=== PATIENT | female | born 1935 | race Caucasian/White ===

== ENCOUNTER 2019-01-19 15:50 | Inpatient (IN) | payer BC, MEDICAID ==
[~2019-01-19] VITALS: Ht 157.5 cm; Wt 54.4 kg
[2019-01-19] MEDS ORDERED: ACETAMINOPHEN ES 500 MG TABLET PO ONE (16:30)
[2019-01-19] MEDS ORDERED: ACETAMINOPHEN ES 500 MG TABLET ONE (16:36)
[2019-01-19 16:47] LABS: BASOPHILS % (AUTO) 0.6 % (0.0-2.0); EOSINOPHILS # (AUTO) 0.1 K/uL (0.0-0.7); EOSINOPHILS % (AUTO) 0.8 % (0.0-7.0); HEMATOCRIT 30.9 % (31.2-41.9); HEMOGLOBIN 10.4 g/dL (10.9-14.3); LYMPHOCYTES # (AUTO) 1.3 K/uL (20.0-40.0); LYMPHOCYTES % (AUTO) 21.6 % (20.5-51.5); MEAN CORPUSCULAR HEMOGLOBIN 30.3 uug (24.7-32.8); MEAN CORPUSCULAR HGB CONC 34 g/dL (32.3-35.6); MEAN CORPUSCULAR VOLUME 90.2 fL (75.5-95.3); MONOCYTES # (AUTO) 0.6 K/uL (2.0-10.0); MONOCYTES % (AUTO) 9.8 % (0.0-11.0); NEUTROPHILS # (AUTO) 4.2 K/uL (1.8-8.9); NEUTROPHILS % (AUTO) 67.2 % (38.5-71.5); PLATELET COUNT (AUTO) 141 K/uL (179-408); RED BLOOD CELL COUNT(AUTO) 3.43 MIL/uL (3.63-4.92); WHITE BLOOD COUNT (AUTO) 6.2 K/uL (3.8-11.8)
[2019-01-19 16:53] LABS: CREATININE 0.9 mg/dL (0.6-1.3); POTASSIUM 3.8 mmol/L (3.5-5.1)
[2019-01-19 16:59] LABS: BILIRUBIN,DIRECT 0.1 mg/dL (0.0-0.2); BILIRUBIN,TOTAL 0.6 mg/dL (0.2-1.0); TOTAL PROTEIN, SERUM 6.2 g/dL (6.4-8.2)
[2019-01-19 17:41] LABS: THYROID STIMULATING HORMONE 0.813 mIU/mL (0.358-3.740)
--- NOTE | 2019-01-19 17:45 | NUR ---
Dr. Altamirano paged, awaiting call back
[2019-01-19] MEDS ORDERED: LORATADINE (17:55)
[2019-01-19] MEDS ORDERED: VITAMIN D (17:55)
[2019-01-19] MEDS ORDERED: LORAZEPAM (17:55)
[2019-01-19] MEDS ORDERED: LYRICA (17:55)
--- NOTE | 2019-01-19 18:45 | NUR ---
Spoke to Mel[place] from [place] [facility] Altamirano did not answer the phone and she stated that she will try to get a hold of him and call us back.
--- NOTE | 2019-01-19 18:51 | NUR ---
ER PHYSICIAN SPEAKING W/ DR. GARZON.
--- NOTE | 2019-01-19 18:58 | NUR ---
Dr. Altamirano called back, patient does need to be transferred and can be admitted.
--- NOTE | 2019-01-19 19:09 | NUR ---
HAND OFF AND SBAR RECEIVED FROM PHOEBE RN (OUTGOING DAY SHIFT RN) PT WILL BE ADMITTED FOR TELE SHYLA GARZON MD DX : SUBDURAL HEAD INJURY L RADIUS AND ULNAR FX S/P FALL TODAY PT IS [id number]
--- NOTE | 2019-01-19 19:09 | NUR ---
Report given to JOHN Cote
--- NOTE | 2019-01-19 19:30 | NUR ---
DR SHELBY (FACE) ON THE PHONE W/ DR MATA
--- NOTE | 2019-01-19 19:33 | NUR ---
OKAY TO ADMIT PER DR SHELBY. DR MATA SPOKE WITH HIM OVER THE PHONE IN ORDER TO OBTAIN APPROVAL.
--- NOTE | 2019-01-19 19:37 | NUR ---
MICHELLE CALLED PENDING CALL BACK FROM DR SORIANO
--- NOTE | 2019-01-19 20:19 | NUR ---
Report to Saeid LOPEZ
--- NOTE | 2019-01-19 20:34 | NUR ---
Pt. admitted to [facility] , under care of Dr. Del Real Belongs List completed
[2019-01-19 20:57] VITALS: BP 132/86
[2019-01-19] MEDS ORDERED: Z GUARD REMEDY PASTE 57 GM TUBE TOP PRN (22:00)
[2019-01-19] MEDS ORDERED: ONDANSETRON 4 MG/2 ML VIAL IV PRN (22:00)
[2019-01-19] MEDS ORDERED: ACETAMINOPHEN 325 MG TABLET PO PRN (22:00)
[2019-01-19] MEDS ORDERED: MAGNESIUM HYDROXIDE 30 ML LIQUID UDC PO PRN (22:00)
[2019-01-20] VITALS: BP 130/72
[2019-01-20 04:00] VITALS: BP 140/80
--- NOTE | 2019-01-20 05:37 | NUR ---
Admitted to room 302 via wheelchair accompanied by family; neurologically stable; assisted with needs, good appetite; seen by Dr Del Real with new orders; refused last night's trop lab draw; went for repeat CT of head; safety maintained; continue to monitor; continue plan of care.
[2019-01-20 06:34] LABS: BASOPHILS % (AUTO) 0.7 % (0.0-2.0); EOSINOPHILS # (AUTO) 0.1 K/uL (0.0-0.7); EOSINOPHILS % (AUTO) 2.1 % (0.0-7.0); HEMATOCRIT 30.7 % (31.2-41.9); HEMOGLOBIN 10.4 g/dL (10.9-14.3); LYMPHOCYTES # (AUTO) 1.7 K/uL (20.0-40.0); LYMPHOCYTES % (AUTO) 30.6 % (20.5-51.5); MEAN CORPUSCULAR HEMOGLOBIN 30.1 uug (24.7-32.8); MEAN CORPUSCULAR HGB CONC 34 g/dL (32.3-35.6); MEAN CORPUSCULAR VOLUME 89.1 fL (75.5-95.3); MONOCYTES # (AUTO) 0.5 K/uL (2.0-10.0); MONOCYTES % (AUTO) 8.4 % (0.0-11.0); NEUTROPHILS # (AUTO) 3.2 K/uL (1.8-8.9); NEUTROPHILS % (AUTO) 58.2 % (38.5-71.5); PLATELET COUNT (AUTO) 146 K/uL (179-408); RED BLOOD CELL COUNT(AUTO) 3.44 MIL/uL (3.63-4.92); WHITE BLOOD COUNT (AUTO) 5.4 K/uL (3.8-11.8)
[2019-01-20 06:49] LABS: BILIRUBIN,TOTAL 0.7 mg/dL (0.2-1.0); CREATININE 0.8 mg/dL (0.6-1.3); MAGNESIUM 1.7 mg/dL (1.8-2.4); PHOSPHOROUS 3.5 mg/dL (2.5-4.9); POTASSIUM 3.4 mmol/L (3.5-5.1); TOTAL PROTEIN, SERUM 6.3 g/dL (6.4-8.2)
--- NOTE | 2019-01-20 08:00 | NUR ---
AWAKE ALERT AND TALKING APPROPRIATELY, FARSI SPEAKING WITH CAREGIVER AT BEDSIDE, SR ON MONITOR. NO SS OF PAIN, N/V, DIZZINESS. CONTINUE WITH DERREK MONITORING
[2019-01-20 08:22] VITALS: BP 145/75
[2019-01-20] MEDS ORDERED: POLYVINYL ALCOHOL OPHT DROPS 15 ML BOTTLE EACHEYE PRN (10:30)
[2019-01-20 11:53] VITALS: BP 152/74
--- NOTE | 2019-01-20 12:00 | NUR ---
SEEN BY DR FIGUEROA FOR CARDIAC FOLLOW-UP SEE NOTES
[2019-01-20] MEDS: MAGNESIUM SULFATE/D5W 100 ML IV SCH ×2 (12:58→14:14)
[2019-01-20] MEDS ORDERED: POTASSIUM CHLORIDE 20 MEQ TAB.PRT.SR PO ONE (13:00)
[2019-01-20] MEDS ORDERED: LORA10TA7 PO (13:22)
[2019-01-20] MEDS ORDERED: LORA-259 PO (13:23)
[2019-01-20] MEDS ORDERED: PREG75CA PO (13:24)
[2019-01-20] MEDS ORDERED: CHOL200026 PO (13:25)
[2019-01-20] MEDS ORDERED: TRAM50TA2 PO (13:25)
[2019-01-20 16:00] VITALS: BP 144/85
--- NOTE | 2019-01-20 16:17 | NUR ---
CONTINUE WITH CURRENT TX PLAN, FALL PRECAUTION OBSERVED, METER TESTER IN ROOM. SR ON MONITOR
--- NOTE | 2019-01-20 19:30 | NUR ---
Received patient awake and alert in bed with daughter at bedside, patient is Farsi speaking. No complaints of pain to left wrist, no complaints of SOB. Heplock on the right forearm is intact and patent. Vitals WNL. Safety measures initiated. Bed is low and locked, call light within reach. Will continue to monitor.
[2019-01-20 20:00] VITALS: BP 156/86
[2019-01-20] MEDS: HYDROCODONE/APAP 5-325MG TABLET PO PRN (20:06)
[2019-01-20] MEDS: DOCUSATE SODIUM 100 MG CAPSULE PO SCH (20:06)
[2019-01-21] VITALS: BP 140/68
[2019-01-21 04:00] VITALS: BP 140/72
--- NOTE | 2019-01-21 06:00 | NUR ---
Patient slept intermittently, daughter at bedside. No distress noted. No complaints of SOB. Splint to the left forearm is intact. Safety measures given. Will endorse to next shift.
[2019-01-21 06:48] LABS: CREATININE 0.8 mg/dL (0.6-1.3); POTASSIUM 3.7 mmol/L (3.5-5.1)
--- NOTE | 2019-01-21 08:00 | NUR ---
AWAKE ALERT AND FORGETFUL FARSI SPEAKING. AWAITING ORTHO CONSULT
[2019-01-21 10:00] VITALS: BP 137/76
--- NOTE | 2019-01-21 10:01 | NUR ---
NO ACUTE CHANGE SR ON MONITOR. FALL PRECAUTION OBSERVED
[2019-01-21 16:31] VITALS: BP 108/69
--- NOTE | 2019-01-21 16:37 | NUR ---
FOLLOW-UP CALL FOR DR QUINTANILLA REGARDING WOUND CONSULT DONE, MESSAGE LEFT WITH CAFETERIA AIDE. SPLINT LEFT FOREARM MAINTAINED
--- NOTE | 2019-01-21 19:30 | NUR ---
PATIENT INTERMITTENTLY SLEEPING, AROUSABLE TO VERBAL COMMANDS. PATIENT ALERT AND ORIENTED X 3 DAUGHTER AT THE BED SIDE. SPLINT ON LEFT FA INTACT . WILL CONTINUE TO MONITOR . WAITING FOR THE DOCTOR FOR DISCHARGE ORDER TO GO HOME
[2019-01-21] MEDS: DOCUSATE SODIUM 100 MG CAPSULE PO SCH (19:53)
[2019-01-21] MEDS: HYDROCODONE/APAP 5-325MG TABLET PO PRN (19:54)
--- NOTE | 2019-01-21 20:00 | NUR ---
PAIN MEDICATION ADMINISTERED ON C/O L FA PAIN
--- NOTE | 2019-01-21 20:55 | NUR ---
TELE MONITOR DISCONTINUED. RADIOLOGY REPORT IN THE DISC WAS GIVEN TO THE SON PER REQUEST
--- NOTE | 2019-01-21 20:57 | NUR ---
PATIENT DISCHARGED HOME. IV DISCONTINUED . ARM BAND REMOVED. DISCHARGE INSTRUCTIONS EXPLAINED TO THE SON AND AND THE DAUGHTER PRESENT WITH THE PATIENT. BELONGINGS LIST CHECKED AND SIGNED BY THE DAUGHTER. WOOD HEEL FITTER MACHINE BROUGHT THE PATIENT TO THE CAR
== END 2019-01-21 21:06 | disposition home or self-care (01) | DRG 86 ==
LOC: ER 15:53 → TELE-TD3 20:24 → TELE3 01-20 18:37
PROVIDERS: ADMIT Hospitalist; ATTEND Hospitalist
PROC: 2W3DX1Z Immobilization of Left Lower Arm using Splint (ICD-10-PCS; principal; 2019-01-19)
DX: S06.5X0A Traumatic subdural hemorrhage without loss of consciousness, initial encounter (principal); S52.502A Unspecified fracture of the lower end of left radius, initial encounter for closed fracture; S52.612A Displaced fracture of left ulna styloid process, initial encounter for closed fracture; E44.1 Mild protein-calorie malnutrition; I24.8 Other forms of acute ischemic heart disease; W18.30XA Fall on same level, unspecified, initial encounter; Y92.019 Unspecified place in single-family (private) house as the place of occurrence of the external cause; M79.7 Fibromyalgia; Z68.21 Body mass index [BMI] 21.0-21.9, adult; G89.29 Other chronic pain; M54.5 Low back pain; I70.0 Atherosclerosis of aorta; M17.12 Unilateral primary osteoarthritis, left knee; I73.9 Peripheral vascular disease, unspecified; M25.462 Effusion, left knee; D64.9 Anemia, unspecified; D69.6 Thrombocytopenia, unspecified; E87.6 Hypokalemia; E83.42 Hypomagnesemia; I67.2 Cerebral atherosclerosis
CPT/HCPCS: 36415; 70030-TC; 70450; 71045; 73090; 73110; 73130; 83735; 84100; 84443; 85025; 85730; 93005; A4663; A9150; G0378; J3475; J7050